=== PATIENT | female | born 1985 | race Asian ===

== ENCOUNTER 2025-05-08 15:07 | Emergency (ER) | payer MEDICARE ==
[~2025-05-08] VITALS: Ht 149.9 cm; Wt 68.9 kg
[2025-05-08 15:27] VITALS: PULSE 87; RESP 17; TEMP 98.4; O2SAT 96
== END 2025-05-08 17:34 | disposition home or self-care (01) ==
LOC: ER 17:01
DX: M25.571 Pain in right ankle and joints of right foot (principal); X50.1XXD Overexertion from prolonged static or awkward postures, subsequent encounter; I10 Essential (primary) hypertension
CPT/HCPCS: 99283